=== PATIENT | male | born 1980 | race Caucasian/White ===

== ENCOUNTER 2016-07-11 17:13 | Emergency (ER) | payer MEDICARE, OTHER ==
[~2016-07-11 17:13] MED LIST: ALPRAZOLAM PO; AMOXICILLIN PO; AUGMENTIN PO; CIPRO PO; CYANOCOBAL1000 MCG/M INJ; DARVOCET-N 1001 TA1 DOB; DARVOCET-N 1001 TAB PO; DOXEPIN HCL25 MG; FLEXERIL PO; FLEXERIL10 MG PO; FLONASE16 GM; GUAIFENSEN DM PO; IBUPROFEN PO; IMODIUM2 MG PO; KEFLEX500 MG PO; KETOPROFEN PO; KLONOPIN PO; MEDROL DOSEPAK4 MG DOB; MEDROL PO; MOBIC PO; NAPROXEN PO; NEURONTIN300 MG PO; NEXIUM PO; NORCO 7.5-3251 EACH PO; ORUDIS75 M1 PO; PEPCID PO; PHENERGAN PO; PRILOSEC PO; PROPRANOLOL PO; REQUIP1 MG PO; ROBAXIN PO; ROBITUSSIN COUG1 CAP PO; VICODIN 5/500 T1 TAB PO; ZANTAC PO; ZITHROMAX PO; ZYPREXA20 MG PO; ZYRTEC PO; ZYRTEC-D T1 TAB.SR . PO; [UNRECOGNIZED DRUG - OTHER]
[2016-07-11 17:32] LABS: INFLUENZA A NEG (NEG); INFLUENZA B NEG (NEG)
[2016-12-07] MEDS ORDERED: AMITRIPTYLINE H50 MG PO (14:25)
[2016-12-07] MEDS ORDERED: NEURONTIN PO (14:25)
[2016-12-07] MEDS ORDERED: MULTI VITAMIN1 EACH PO (14:27)
[2016-12-07] MEDS ORDERED: ALBUTEROL17 GM INH (14:35)
== END 2016-07-11 18:32 | disposition home or self-care (01) ==
LOC: CFTX 17:13
PROVIDERS: Nurse Practitioner Family
DX: J01.90 Acute sinusitis, unspecified (principal); Z90.49 Acquired absence of other specified parts of digestive tract; Z88.5 Allergy status to narcotic agent; Z79.899 Other long term (current) drug therapy
CPT/HCPCS: 87651; 87804; 87880; 99283

== ENCOUNTER 2016-07-24 01:00 | Emergency (ER) | payer MEDICARE, OTHER ==
--- NOTE | ~2016-07-24 | CT71 ---
[facility] A Service of [facility] RADIOLOGY TEXT RESULTS PATIENT: RUBEN OROZCO LOCATION: [facility] : 80 UNIT #: [id number] AGE: [address]: Mayra Reilly MD SEX: M ORDER DR: [id number] [place] [id number] [facility]. [place], [place] [address] [id number] E MR#: [id number] Acc #: [id number] NAME: RUBEN OROZCO : 1980 SEX: M STUDY DATE/TIME: 07/24/2016 2:21 UNIT: [facility] ROOM: STUDY DESCRIPTION: CT Head Wo Contrast Attending Physician: Mayra Reilly M.D. Ordering Physician: Mayra Reilly M.D. Primary Care Physician: [facility], [facility]. MEDICAL IMAGING REPORT This report is preliminary unless electronic signature is present EXAM Noncontrasted CT head, 07/24/2016 at 02:21. HISTORY Headache and dizziness for 4 days. No history of trauma. COMPARISON STUDIES Noncontrasted CT head, 01/27/2009. TECHNIQUE Axial noncontrast images were obtained from the skull base to the vertex. This CT exam was performed with one or more of the following radiation dose reduction techniques: automatic exposure control, adjustment of mA and/or kV according to patient size, and iterative reconstruction. FINDINGS Ventricular size and configuration are normal. There is no evidence of acute infarct or hemorrhage. There are no extra-axial fluid collections. No mass lesion or mass effect is seen. There are no skull fractures. IMPRESSION Normal noncontrast head CT. Dictated by... Hafsa Botello M.D. THIS IS AN ELECTRONICALLY VERIFIED REPORT Hafsa Botello M.D. at 07/24/2016 9:57 PM YING/michael [facility] A Service of [facility] RADIOLOGY TEXT RESULTS PATIENT: RUBEN OROZCO LOCATION: [place] : 80 UNIT #: [id number] AGE: [address]: Mayra Reilly MD SEX: M ORDER DR: TD: 07/24/2016 12:24 JOB #: [id number] MEDICAL IMAGING REPORT COPY
[2016-12-07] MEDS ORDERED: NEURONTIN PO (14:25)
[2016-12-07] MEDS ORDERED: AMITRIPTYLINE H50 MG PO (14:25)
[2016-12-07] MEDS ORDERED: MULTI VITAMIN1 EACH PO (14:27)
[2016-12-07] MEDS ORDERED: ALBUTEROL17 GM INH (14:35)
== END 2016-07-24 04:12 | disposition home or self-care (01) ==
LOC: CED 01:00
DX: R51 Headache (principal); F41.9 Anxiety disorder, unspecified; K21.9 Gastro-esophageal reflux disease without esophagitis; Z90.49 Acquired absence of other specified parts of digestive tract; Z88.8 Allergy status to other drugs, medicaments and biological substances; Z88.5 Allergy status to narcotic agent
CPT/HCPCS: 70450; 96372; 99284; J1885

== ENCOUNTER → 2016-07-27 | Outpatient (CLI) | payer MEDICARE, OTHER ==
[~2016-07-27] MED LIST changes: +ALBUTEROL17 GM INH; +AMITRIPTYLINE H50 MG PO; +MULTI VITAMIN1 EACH PO; +NEURONTIN PO; +TRAZODONE HCL100 MG PO
--- NOTE | ~2016-07-27 | CT2 ---
[facility] A Service of [facility] RADIOLOGY TEXT RESULTS PATIENT: RUBEN OROZCO [facility] [birth year] UNIT #: [id number] AGE: [address]: Karan Urias III, MD SEX: M ORDER DR: [id number] [address] [place], [place] [address] [id number] O MR#: [id number] Acc #: [id number] NAME: RUEBN OROZCO : 1980 SEX: M STUDY DATE/TIME: 07/27/2016 15:36 UNIT: [facility] ROOM: STUDY DESCRIPTION: CT Abd and Pelv W Cont Attending Physician: Karan Urias III, M.D. Referring Physician: Karan Urias III, M.D. Ordering Physician: Karan Urias III, M.D. Primary Care Physician: [facility] MEDICAL IMAGING REPORT This report is preliminary unless electronic signature is present EXAM CT abdomen and pelvis with contrast, 07/27/2016 INDICATION Generalized abdominal pain, nausea, vomiting, and diarrhea for the past 4-5 months. PROCEDURE Contrast-enhanced CT of the abdomen and pelvis. 100 mL of Isovue-370. This CT exam was performed with one or more of the following radiation dose reduction techniques: automatic exposure control, adjustment of mA and/or kV according to patient size, and iterative reconstruction. COMPARISON 12/25/2015 FINDINGS ABDOMEN WITH CONTRAST: Included lung bases are clear. Significant hepatic steatosis. There is a stable high-attenuation region and segment 3 of the liver. This measures 3.4 cm and is unchanged. It probably represents an area of fatty sparing. The spleen, kidneys, adrenal glands, and pancreas unremarkable. Previous cholecystectomy. Bowel loops are nondilated. Appendix is normal. PELVIS WITH CONTRAST: No pelvic mass or fluid. No aggressive-appearing bone lesion. IMPRESSION 1. No acute findings. [facility] A Service of [facility] RADIOLOGY TEXT RESULTS PATIENT: RUBEN OROZCO [facility] 80 UNIT #: [id number] AGE: [address]: Karan Urias III, MD SEX: M ORDER DR: 2. Significant hepatic steatosis. 3. An area of high-attenuation in segment 3 of the liver probably represents an area of focal fatty sparing. It could also represent a true underlying mass. It has been stable since at least and has a benign appearance. Dictated by... Noel Albarran M.D. THIS IS AN ELECTRONICALLY VERIFIED REPORT Noel Albarran M.D. at 07/28/2016 7:05 AM SLICK/katherine TD: 07/28/2016 01:43 JOB #: [id number] MEDICAL IMAGING REPORT COPY
== END | disposition home or self-care (01) ==
LOC: CCAT 14:02
DX: R10.9 Unspecified abdominal pain (principal); R11.0 Nausea; R10.84 Generalized abdominal pain; K76.0 Fatty (change of) liver, not elsewhere classified
CPT/HCPCS: 74177; Q9967

== ENCOUNTER 2016-08-08 14:09 | Emergency (ER) | payer MEDICARE, OTHER ==
--- NOTE | ~2016-08-08 | CR172 ---
[facility] A Service of [facility] RADIOLOGY TEXT RESULTS PATIENT: RUBEN OROZCO LOCATION: [facility] : 80 UNIT #: [id number] AGE: [address]: Chen Pat SEX: M ORDER DR: [id number] [facility] [address] [place], [place] [address] [id number] E MR#: [id number] Acc #: [id number] NAME: RUBEN OROZCO : 1980 SEX: M STUDY DATE/TIME: 08/08/2016 14:09 UNIT: [facility] ROOM: STUDY DESCRIPTION: CR Knee 3 Views Lt Attending Physician: Chen Pat P.A.-C. Ordering Physician: Chen Pat P.A.-C. Primary Care Phys[facility] MED[facility] IMAGING REPORT This report is preliminary unless electronic signature is present EXAM Left knee 3 views 08/08/2016 HISTORY 36-year-old male with left knee pain today after injuring it. COMPARISON STUDIES No comparison FINDINGS There is no joint effusion. No fracture or dislocation. IMPRESSION Negative. Dictated by... Jonathan Duke M.D. THIS IS AN ELECTRONICALLY VERIFIED REPORT Jonathan Duke M.D. at 08/09/2016 10:00 AM Donell TD: 08/08/2016 17:49 JOB #: [id number] MEDICAL IMAGING REPORT Page 1 of 1 COPY
[~2016-08-08 14:09] MED LIST changes: -ALBUTEROL17 GM INH; -AMITRIPTYLINE H50 MG PO; -MULTI VITAMIN1 EACH PO; -NEURONTIN PO; -TRAZODONE HCL100 MG PO
[2016-12-07] MEDS ORDERED: NEURONTIN PO (14:25)
[2016-12-07] MEDS ORDERED: AMITRIPTYLINE H50 MG PO (14:25)
[2016-12-07] MEDS ORDERED: MULTI VITAMIN1 EACH PO (14:27)
[2016-12-07] MEDS ORDERED: ALBUTEROL17 GM INH (14:35)
== END 2016-08-08 15:12 | disposition home or self-care (01) ==
LOC: CFTX 14:09
DX: S76.112A Strain of left quadriceps muscle, fascia and tendon, initial encounter (principal); F41.9 Anxiety disorder, unspecified; Z88.5 Allergy status to narcotic agent; Z88.8 Allergy status to other drugs, medicaments and biological substances; W22.8XXA Striking against or struck by other objects, initial encounter; Y92.009 Unspecified place in unspecified non-institutional (private) residence as the place of occurrence of the external cause
CPT/HCPCS: 29530; 73562; 99283

== ENCOUNTER 2016-10-05 17:28 | Emergency (ER) | payer MEDICARE, OTHER ==
--- NOTE | ~2016-10-05 | CR126 ---
[facility] A Service of [facility] RADIOLOGY TEXT RESULTS PATIENT: RUBEN OROZCO LOCATION: [facility] : 80 UNIT #: [id number] AGE: [address]: Maria Sanchez APRN SEX: M ORDER DR: [id number] [facility] [address] [place], [place] [address] [id number] E MR#: [id number] Acc #: [id number] NAME: RUBEN OROZCO : 1980 SEX: M STUDY DATE/TIME: 10/05/2016 18:12 UNIT: [facility] ROOM: STUDY DESCRIPTION: CR Foot Complete Min 3 View Lt Attending Physician: Maria Sanchez A.P.R.N. Ordering Physician: Javad Gomez M.D. [facility] MEDICAL IMAGING REPORT This report is preliminary unless electronic signature is present EXAM Left foot series, 10/05/2016 HISTORY Heel pain 2 weeks, left plantar pain, no known injury. FINDINGS AP, lateral and oblique radiographs of the left foot are presented. No fracture or malalignment. Very small plantar calcaneal spur. Joint spaces unremarkable. No acute appearing soft tissue abnormality. Dictated by... Loco Conti M.D. THIS IS AN ELECTRONICALLY VERIFIED REPORT Loco Conti M.D. at 10/06/2016 5:58 PM CODEY/aida TD: 10/05/2016 21:34 JOB #: [id number] MEDICAL IMAGING REPORT Page 1 of 1 COPY
[2016-12-07] MEDS ORDERED: AMITRIPTYLINE H50 MG PO (14:25)
[2016-12-07] MEDS ORDERED: NEURONTIN PO (14:25)
[2016-12-07] MEDS ORDERED: MULTI VITAMIN1 EACH PO (14:27)
[2016-12-07] MEDS ORDERED: ALBUTEROL17 GM INH (14:35)
== END 2016-10-05 19:25 | disposition home or self-care (01) ==
LOC: CED 17:28 → CFTX 17:28
DX: M72.2 Plantar fascial fibromatosis (principal); K21.9 Gastro-esophageal reflux disease without esophagitis; F43.10 Post-traumatic stress disorder, unspecified; Z88.5 Allergy status to narcotic agent; Z88.8 Allergy status to other drugs, medicaments and biological substances
CPT/HCPCS: 73630; 99283

== ENCOUNTER 2016-10-10 02:04 | Emergency (ER) | payer MEDICARE, OTHER ==
[2016-12-07] MEDS ORDERED: AMITRIPTYLINE H50 MG PO (14:25)
[2016-12-07] MEDS ORDERED: NEURONTIN PO (14:25)
[2016-12-07] MEDS ORDERED: MULTI VITAMIN1 EACH PO (14:27)
[2016-12-07] MEDS ORDERED: ALBUTEROL17 GM INH (14:35)
== END 2016-10-10 04:24 | disposition home or self-care (01) ==
LOC: CED 02:04
DX: M77.32 Calcaneal spur, left foot (principal); M72.2 Plantar fascial fibromatosis; K21.9 Gastro-esophageal reflux disease without esophagitis; F41.9 Anxiety disorder, unspecified; F43.10 Post-traumatic stress disorder, unspecified; Z79.899 Other long term (current) drug therapy; Z88.5 Allergy status to narcotic agent
CPT/HCPCS: 96372; 99283; J1885

== ENCOUNTER 2016-10-26 03:49 | Emergency (ER) | payer MEDICARE, OTHER ==
[2016-12-07] MEDS ORDERED: AMITRIPTYLINE H50 MG PO (14:25)
[2016-12-07] MEDS ORDERED: NEURONTIN PO (14:25)
[2016-12-07] MEDS ORDERED: MULTI VITAMIN1 EACH PO (14:27)
[2016-12-07] MEDS ORDERED: ALBUTEROL17 GM INH (14:35)
== END 2016-10-26 07:37 | disposition home or self-care (01) ==
LOC: CED 03:49
DX: R51 Headache (principal); F41.9 Anxiety disorder, unspecified; F43.10 Post-traumatic stress disorder, unspecified; K21.9 Gastro-esophageal reflux disease without esophagitis; F17.290 Nicotine dependence, other tobacco product, uncomplicated; Z79.899 Other long term (current) drug therapy; Z88.8 Allergy status to other drugs, medicaments and biological substances
CPT/HCPCS: 96361; 96374; 96375; 99283; J1100; J1200; J1885; J2550

== ENCOUNTER 2016-11-21 14:44 | Emergency (ER) | payer MEDICARE, OTHER ==
[2016-12-07] MEDS ORDERED: AMITRIPTYLINE H50 MG PO (14:25)
[2016-12-07] MEDS ORDERED: NEURONTIN PO (14:25)
[2016-12-07] MEDS ORDERED: MULTI VITAMIN1 EACH PO (14:27)
[2016-12-07] MEDS ORDERED: ALBUTEROL17 GM INH (14:35)
== END 2016-11-21 18:40 | disposition left against medical advice (07) ==
LOC: CED 14:44
DX: Z53.21 Procedure and treatment not carried out due to patient leaving prior to being seen by health care provider (principal)

== ENCOUNTER 2016-11-24 01:12 | Emergency (ER) | payer MEDICARE, OTHER ==
[2016-11-24 02:16] LABS: BASOPHIL# 0.1 X10e3 (0-0.3); BASOPHIL% 0.7 % (0-2.5); DIFF IND NO; EOSINOPHIL# 0.3 X10e3 (0-0.7); EOSINOPHIL% 3.3 % (0.0-7.0); HEMATOCRIT 41.8 % (38.0-50.0); HEMOGLOBIN 13.6 gm/dL (13.0-16.0); LYMPHOCYTE# 3.1 X10e3 (1.0-3.5); LYMPHOCYTE% 37.1 % (17.0-45.0); MEAN CELL VOLUME 82.1 FL (83-96); MEAN CORPUSCULAR HEMOGLOBIN 26.8 PG (28-34); MEAN CORPUSCULAR HGB CONC 32.6 g/dL (30-36); MEAN PLATELET VOLUME 9.7 FL (6.5-11.5); MONOCYTE# 0.6 X10e3 (0-1.0); MONOCYTE% 7.3 % (3.0-12.0); NEUTROPHIL# 4.3 X10e3 (1.5-7.1); NEUTROPHIL% 51.6 % (40-75); PLATELET COUNT 146 X10e3 (140-420); RED BLOOD COUNT 5.09 X10e (3.90-5.60); RED CELL DISTRIBUTION WIDTH 14.6 % (11.0-15.5); WHITE BLOOD COUNT 8.2 X10e3 (4.0-10.5)
[2016-11-24 02:40] LABS: ALBUMIN SERUM 3.5 g/dL (3.5-5.0); BILIRUBIN, DIRECT 0.1 mg/dL (0.0-0.2); BILIRUBIN,INDIRECT 0.1 mg/dL (0.0-0.9); BILIRUBIN,TOTAL 0.2 mg/dL (0.2-2.0); BUN/CREATININE RATIO 10.83; CALCIUM SERUM 8.3 mg/dL (8.4-10.2); CREATININE SERUM 1.2 mg/dL (0.6-1.4); GLOM FILT RATE Estimated 77.4 mL/min (>60); POTASSIUM 3.7 mmol/L (3.5-5.1); PROTEIN TOTAL SERUM 6.4 g/dL (6.0-8.3)
[2016-12-07] MEDS ORDERED: NEURONTIN PO (14:25)
[2016-12-07] MEDS ORDERED: AMITRIPTYLINE H50 MG PO (14:25)
[2016-12-07] MEDS ORDERED: MULTI VITAMIN1 EACH PO (14:27)
[2016-12-07] MEDS ORDERED: ALBUTEROL17 GM INH (14:35)
== END 2016-11-24 03:26 | disposition home or self-care (01) ==
LOC: CED 01:12
PROVIDERS: Emergency Medicine
DX: R10.13 Epigastric pain (principal); R11.0 Nausea; F41.9 Anxiety disorder, unspecified; Z90.49 Acquired absence of other specified parts of digestive tract; F17.200 Nicotine dependence, unspecified, uncomplicated; Z88.6 Allergy status to analgesic agent; Z88.8 Allergy status to other drugs, medicaments and biological substances
CPT/HCPCS: 36415; 80048; 80076; 82150; 83690; 85025; 96374; 99284; C9113

== ENCOUNTER 2016-11-28 21:18 | Emergency (ER) | payer MEDICARE, OTHER ==
[~2016-11-28] VITALS: Ht 193 cm; Wt 104.3 kg
--- NOTE | ~2016-11-28 | CR173 ---
[facility] A Service of [facility] RADIOLOGY TEXT RESULTS PATIENT: RUBEN OROZCO LOCATION: [facility] : 80 UNIT #: [id number] AGE: [address]: Jovi Olmedo SEX: M ORDER DR: [id number] [facility] [address] [place], [place] [address] [id number] E MR#: [id number] Acc #: [id number] NAME: RUBEN OROZCO : 1980 SEX: M STUDY DATE/TIME: 11/28/2016 22:27 UNIT: [facility] ROOM: STUDY DESCRIPTION: CR Knee 3 Views Rt Attending Physician: Jovi Olmedo Ordering Physician: Ed Aristides Gomez M.D. Primary Care Physician: [facility] MEDICAL IMAGING REPORT This report is preliminary unless electronic signature is present EXAM Right knee series. INDICATIONS Right lateral and posterior knee pain and swelling after an injury today. PROCEDURE Three views of the right knee. COMPARISON None. FINDINGS No acute fracture, dislocation or joint effusion. IMPRESSION No acute findings. Dictated by... Noel Albarran M.D. THIS IS AN ELECTRONICALLY VERIFIED REPORT Noel Albarran M.D. at 11/29/2016 9:53 PM SLICK/tori TD: 11/29/2016 13:25 JOB #: [id number] MEDICAL IMAGING REPORT Page 1 of 1 COPY
[2016-12-07] MEDS ORDERED: NEURONTIN PO (14:25)
[2016-12-07] MEDS ORDERED: AMITRIPTYLINE H50 MG PO (14:25)
[2016-12-07] MEDS ORDERED: MULTI VITAMIN1 EACH PO (14:27)
[2016-12-07] MEDS ORDERED: ALBUTEROL17 GM INH (14:35)
== END 2016-11-29 00:21 | disposition home or self-care (01) ==
LOC: CED 21:18 → CFTX 21:18
DX: S83.91XA Sprain of unspecified site of right knee, initial encounter (principal); F17.210 Nicotine dependence, cigarettes, uncomplicated; K21.9 Gastro-esophageal reflux disease without esophagitis; F43.10 Post-traumatic stress disorder, unspecified; F41.9 Anxiety disorder, unspecified; X50.1XXA Overexertion from prolonged static or awkward postures, initial encounter; Y92.830 Public park as the place of occurrence of the external cause
CPT/HCPCS: 29530; 73562; 99283

== ENCOUNTER 2016-12-04 03:17 | Emergency (ER) | payer MEDICARE, OTHER ==
[2016-12-07] MEDS ORDERED: NEURONTIN PO (14:25)
[2016-12-07] MEDS ORDERED: AMITRIPTYLINE H50 MG PO (14:25)
[2016-12-07] MEDS ORDERED: MULTI VITAMIN1 EACH PO (14:27)
[2016-12-07] MEDS ORDERED: ALBUTEROL17 GM INH (14:35)
== END 2016-12-04 06:47 | disposition home or self-care (01) ==
LOC: CED 03:17
DX: S83.91XA Sprain of unspecified site of right knee, initial encounter (principal); X50.1XXA Overexertion from prolonged static or awkward postures, initial encounter; Z88.8 Allergy status to other drugs, medicaments and biological substances; Y93.89 Activity, other specified
CPT/HCPCS: 29505; 99283

== ENCOUNTER → 2016-12-07 | Outpatient (CLI) | payer MEDICARE, OTHER ==
[~2016-12-07] MED LIST changes: +ALBUTEROL17 GM INH; +AMITRIPTYLINE H50 MG PO; +MULTI VITAMIN1 EACH PO; +NEURONTIN PO; +TRAZODONE HCL100 MG PO
[2016-12-07 14:11] LABS: HEMATOCRIT 44.9 % (38.0-50.0); HEMOGLOBIN 15.1 gm/dL (13.0-16.0); MEAN CELL VOLUME 81.1 FL (83-96); MEAN CORPUSCULAR HEMOGLOBIN 27.3 PG (28-34); MEAN CORPUSCULAR HGB CONC 33.6 g/dL (30-36); RED BLOOD COUNT 5.54 X10e (3.90-5.60); RED CELL DISTRIBUTION WIDTH 14.5 % (11.0-15.5); WHITE BLOOD COUNT 6.3 X10e3 (4.0-10.5)
[2016-12-07 14:49] LABS: BUN/CREATININE RATIO 10.83; CALCIUM SERUM 8.7 mg/dL (8.4-10.2); CREATININE SERUM 1.2 mg/dL (0.6-1.4); GLOM FILT RATE Estimated 77.4 mL/min (>60); POTASSIUM 4.4 mmol/L (3.5-5.1)
== END | disposition home or self-care (01) ==
LOC: CAMB 13:42
PROVIDERS: Specialist
DX: Z01.812 Encounter for preprocedural laboratory examination (principal)
CPT/HCPCS: 36415; 80048; 85027

== ENCOUNTER → 2016-12-16 | Day surgery (SDC) | payer MEDICARE, OTHER ==
--- NOTE | ~2016-12-16 | OR ---
Unit #: [id number] #: [id number] Patient: RUBEN OROZCO [id number] [facility]. [address] [place], [place] [address] [id number] O MR#: [id number] NAME: RUBEN OROZCO ROOM: Date of Procedure: 12/16/2016 Admission Date: 12/16/2016 Surgeon: Dante Cronin M.D. : 1980 Attending Physician: Dante Cronin M.D. Primary Care Physician: [facility] OPERATIVE REPORT PREOPERATIVE DIAGNOSIS Left superolateral patellar plica. POSTOPERATIVE DIAGNOSIS Left superolateral patellar plica. PROCEDURE Left knee arthroscopy with a limited synovectomy (plica excision). KOSHER SEALER None. ANESTHESIA General anesthesia. COMPLICATIONS None. INDICATION FOR SURGERY Mr. Orozco is a very pleasant 36-year-old gentleman, who had persistent left lateral side knee pain. Failed conservative treatment of anti-inflammatories past the time. MRI was obtained, which showed superolateral plica, which was thickened in appearance that has corresponded with the patient's location of pain. Risks and benefits of surgical intervention with plica excision were discussed in detail. Risks of infection, deep venous thrombosis, persistent pain, need for additional surgery, DVT, PE, and . Questions were answered to his satisfaction. Informed consent was obtained and placed in chart. DESCRIPTION OF PROCEDURE After the patient was identified in the preoperative holding area, the operative site was marked. The patient was brought to the operating room for surgery and placed supine on the operating room table. General endotracheal anesthesia was placed uneventfully. Nonsterile tourniquet placed in the upper left thigh was prepped and draped in usual sterile fashion. Time-out procedure was performed. IV antibiotics were infused. Esmarch was used to exsanguinate and tourniquet was inflated to 250 mmHg. Then, making a lateral based parapatellar stab incision was made with #11 blade scalpel. Blunt trocar was introduced and the camera was introduced. Saline was infused. Then, with needle localization, the medial working portal was created with #11 blade scalpel and a blunt trocar. The suprapatellar space was identified first showed normal synovium without Unit #: [id number] #: [id number] Patient: RUBEN OROZCO significant synovitis. Patellofemoral articulation was visualized, which showed to be normal without arthritic changes. The medial compartment was visualized, which showed intact medial meniscus with only some slight surface fraying, there were no tear, and was stable to probing. The camera was swept to the intercondylar notch, which showed intact ACL, stable to probing. Camera was swept to the lateral compartment, which showed to be pristine without meniscus tear and stable to probing. Both the medial and lateral gutters were visualized, which showed no loose bodies and normal appearance. Then, the camera was swept to the superolateral area of the patellofemoral articulation, which did demonstrate a plica with thickened cord. Also, the lateral aspect of the femur was visualized, which did show suggestion of some rubbing on the epicondylar area. Then, a 4.5 shaver was then used to remove the synovium including the plica of the superolateral area. Then, irrigation fluid was then suctioned out. The instruments were removed. The incision sites were closed with 2-0 nylon suture in a [id number] fashion. Marcaine was injected in the magi-incisional tissues for postoperative pain control. Sterile dressings were applied. He was awakened from anesthesia and returned to recovery room in stable condition. No intraoperative complications. Dictated by... Selina Begum/víctor TD: 12/16/2016 10:14 JOB #: [id number] OPERATIVE REPORT Page 1 of 1 X Dante Cronin MD X PROCEDURE OPERATIVE NOTE
== END | disposition home or self-care (01) ==
LOC: CSUR 06:00
DX: M67.52 Plica syndrome, left knee (principal); J45.909 Unspecified asthma, uncomplicated; K21.9 Gastro-esophageal reflux disease without esophagitis; F17.210 Nicotine dependence, cigarettes, uncomplicated; Z88.5 Allergy status to narcotic agent; Z79.899 Other long term (current) drug therapy; Z88.8 Allergy status to other drugs, medicaments and biological substances; Z90.49 Acquired absence of other specified parts of digestive tract; Z98.890 Other specified postprocedural states
CPT/HCPCS: J0690; J1100; J1885; J2765; J3010

== ENCOUNTER 2016-12-23 02:49 | Emergency (ER) | payer MEDICARE, OTHER ==
[~2016-12-23] VITALS: Ht 185.4 cm; Wt 111.1 kg
[~2016-12-23 02:49] MED LIST changes: -TRAZODONE HCL100 MG PO
[2016-12-23 03:49] LABS: BASOPHIL# 0.1 X10e3 (0-0.3); BASOPHIL% 0.9 % (0-2.5); DIFF IND NO; EOSINOPHIL# 0.3 X10e3 (0-0.7); HEMATOCRIT 40.3 % (38.0-50.0); HEMOGLOBIN 13.5 gm/dL (13.0-16.0); LYMPHOCYTE# 3.3 X10e3 (1.0-3.5); LYMPHOCYTE% 39.1 % (17.0-45.0); MEAN CORPUSCULAR HEMOGLOBIN 27.2 PG (28-34); MEAN CORPUSCULAR HGB CONC 33.6 g/dL (30-36); MEAN PLATELET VOLUME 9.1 FL (6.5-11.5); MONOCYTE# 0.9 X10e3 (0-1.0); MONOCYTE% 10.3 % (3.0-12.0); NEUTROPHIL% 46.7 % (40-75); PLATELET COUNT 153 X10e3 (140-420); RED BLOOD COUNT 4.97 X10e (3.90-5.60); RED CELL DISTRIBUTION WIDTH 14.4 % (11.0-15.5); WHITE BLOOD COUNT 8.5 X10e3 (4.0-10.5)
[2016-12-23 04:30] LABS: ALBUMIN SERUM 3.8 g/dL (3.5-5.0); BILIRUBIN, DIRECT 0.1 mg/dL (0.0-0.2); BILIRUBIN,INDIRECT 0.6 mg/dL (0.0-0.9); BILIRUBIN,TOTAL 0.7 mg/dL (0.2-2.0); BUN/CREATININE RATIO 13.33; CALCIUM SERUM 8.5 mg/dL (8.4-10.2); CREATININE SERUM 1.2 mg/dL (0.6-1.4); GLOM FILT RATE Estimated 77.4 mL/min (>60); POTASSIUM 3.5 mmol/L (3.5-5.1); PROTEIN TOTAL SERUM 6.9 g/dL (6.0-8.3)
== END 2016-12-23 05:59 | disposition home or self-care (01) ==
LOC: CED 02:49
PROVIDERS: Emergency Medicine
DX: R19.7 Diarrhea, unspecified (principal); R11.2 Nausea with vomiting, unspecified
CPT/HCPCS: 36415; 80048; 80076; 83690; 85025; 96360; 99284; J2405

== ENCOUNTER 2017-01-24 02:36 | Emergency (ER) | payer MEDICARE, OTHER ==
[~2017-01-24] VITALS: Ht 182.9 cm; Wt 104.3 kg
[2017-01-24] MEDS ORDERED: TRAZODONE HCL100 MG PO (22:47)
== END 2017-01-24 06:55 | disposition left against medical advice (07) ==
LOC: CED 02:36
DX: Z53.21 Procedure and treatment not carried out due to patient leaving prior to being seen by health care provider (principal)

== ENCOUNTER 2017-01-24 22:17 | Emergency (ER) | payer MEDICARE, OTHER ==
[~2017-01-24] VITALS: Ht 182.9 cm; Wt 106.6 kg
--- NOTE | ~2017-01-24 | CR63 ---
[facility] A Service of [facility] RADIOLOGY TEXT RESULTS PATIENT: RUBEN OROZCO LOCATION: SED : 80 UNIT #: [id number] AGE: [address]: Mark Alonzo MD SEX: M ORDER DR: [id number] [place] [address] [id number] E MR#: [id number] Acc #: [id number] NAME: RUBEN OROZCO : 1980 SEX: M STUDY DATE/TIME: 01/25/2017 00:02 UNIT: SED ROOM: STUDY DESCRIPTION: CR Chest 2 View Attending Physician: Mark Alonzo M.D. Ordering Physician: Mark Alonzo M.D. Primary Care Physician: [facility] IMAGING REPORT This report is preliminary unless electronic signature is present. EXAM Chest x-ray, 01/25 at 0002 hours. INDICATIONS Body aches, weakness, cough, flu-like symptoms that started a few days ago. COMPARISON 12/27/2015. FINDINGS PA and lateral examination of the chest upright shows a good expansion of the parenchyma with a normal distribution of the pulmonary vascularity. There is no indication of congestion, effusion, infiltrate, tumor, or nodular density. The pleural reflections and diaphragmatic contours are normal. The cardiac silhouette and mediastinal anatomy is within normal limits. IMPRESSION Normal chest. Dictated by... Brock Valadez Jr., M.D. THIS IS AN ELECTRONICALLY VERIFIED REPORT Brock Valadez Jr., M.D. at 01/25/2017 8:32 PM LAURAK/melonie TD: 01/25/2017 12:05 JOB #: [id number] [facility] A Service [facility] RADIOLOGY TEXT RESULTS PATIENT: RUBEN OROZCO LOCATION: SED : 80 UNIT #: [id number] AGE: [address]: Mark Alonzo MD SEX: M ORDER DR: MEDICAL IMAGING REPORT Page 1 of 1
[2017-01-24] MEDS ORDERED: TRAZODONE HCL100 MG PO (22:47)
== END 2017-01-25 00:39 | disposition home or self-care (01) ==
LOC: SED 22:17
DX: J06.9 Acute upper respiratory infection, unspecified (principal); Z88.2 Allergy status to sulfonamides
CPT/HCPCS: 71020; 99283

== ENCOUNTER 2017-01-27 23:00 | Emergency (ER) | payer MEDICARE, OTHER ==
[~2017-01-27] VITALS: Ht 182.9 cm; Wt 106.6 kg
[~2017-01-27 23:00] MED LIST changes: +TRAZODONE HCL100 MG PO
[2017-01-27 23:41] LABS: BASOPHIL% 0.5 % (0-2.5); EOSINOPHIL# 0.1 X10e3 (0-0.7); EOSINOPHIL% 0.9 % (0.0-7.0); HEMATOCRIT 44.9 % (38.0-50.0); HEMOGLOBIN 14.7 gm/dL (13.0-16.0); LYMPHOCYTE# 1.8 X10e3 (1.0-3.5); LYMPHOCYTE% 25.2 % (17.0-45.0); MEAN CORPUSCULAR HEMOGLOBIN 26.9 PG (28-34); MEAN CORPUSCULAR HGB CONC 32.9 g/dL (30-36); MEAN PLATELET VOLUME 9.7 FL (6.5-11.5); MONOCYTE# 0.4 X10e3 (0-1.0); MONOCYTE% 5.9 % (3.0-12.0); NEUTROPHIL# 4.9 X10e3 (1.5-7.1); NEUTROPHIL% 67.5 % (40-75); PLATELET COUNT 172 X10e3 (140-420); RED BLOOD COUNT 5.47 X10e (3.90-5.60); RED CELL DISTRIBUTION WIDTH 15.3 % (11.0-15.5); WHITE BLOOD COUNT 7.2 X10e3 (4.0-10.5)
[2017-01-27 23:43] LABS: DIFF IND NO
[2017-01-28 00:07] LABS: ALBUMIN SERUM 4.3 g/dL (3.5-5.0); BILIRUBIN, DIRECT 0.2 mg/dL (0.0-0.2); BILIRUBIN,INDIRECT 0.8 mg/dL (0.0-0.9); BUN/CREATININE RATIO 9.23; CALCIUM SERUM 9.1 mg/dL (8.4-10.2); CREATININE SERUM 1.3 mg/dL (0.6-1.4); GLOM FILT RATE Estimated 70.2 mL/min (>60); POTASSIUM 3.5 mmol/L (3.5-5.1); PROTEIN TOTAL SERUM 7.6 g/dL (6.0-8.3)
[2017-01-28 01:15] LABS: URINE SOURCE CLEAN CATCH
[2017-01-28 01:20] LABS: URINE APPEARANCE CLOUDY; URINE BILIRUBIN NEG (NEG); URINE BLOOD NEG (NEG); URINE COLOR YELLOW; URINE GLUCOSE NEG (NEG); URINE KETONE 1+ (NEG); URINE LEUKOCYTE ESTERASE NEG (NEG); URINE NITRATE NEG (NEG); URINE PH 7.5 (5-8); URINE PROTEIN NEG (NEG); URINE SPECIFIC GRAVITY 1.017 (1.003-1.035); URINE UROBILINOGEN 0.2 MG/DL (NEG)
[2017-01-28 01:29] LABS: CULTURE INDICATED? NO
== END 2017-01-28 01:50 | disposition home or self-care (01) ==
LOC: CED 23:00
DX: K29.00 Acute gastritis without bleeding (principal); F17.200 Nicotine dependence, unspecified, uncomplicated; Z90.49 Acquired absence of other specified parts of digestive tract; Z79.899 Other long term (current) drug therapy; Z88.2 Allergy status to sulfonamides
CPT/HCPCS: 36415; 80048; 80076; 81003; 83690; 85025; 99284; J2550